=== PATIENT | male | born 1970 | race Caucasian/White ===

== ENCOUNTER 2017-10-14 07:55 | Emergency (ER) | payer OTHER ==
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
[2017-10-14] MEDS ORDERED: ACETAMINOPHEN 1000 MG/100 ML VIAL (NON FORMULARY) IVPB ONE (08:38)
[2017-10-14 08:49] VITALS: BMI 32.6
[2017-10-14] MEDS ORDERED: ACETAMINOPHEN INJECTION 100 ML IVPB ONE (08:52)
[2017-10-14] MEDS ORDERED: KETOROLAC TROMETHAMINE 30 MG/1 ML VIAL IVPUSH ONE (11:25)
[2017-10-14] MEDS ORDERED: CYCLOBENZAPRINE HCL 10 MG TABLET (FP) PO ONE (11:26)
[2017-10-14] MEDS ORDERED: CYCLOBENZAPRINE HCL 10 MG TABLET (FP) ONE (11:52)
[2017-10-14] MEDS ORDERED: KETOROLAC TROMETHAMINE 30 MG/1 ML VIAL ONE (11:53)
[2017-10-14 12:50] VITALS: BP 126/86; PULSE 71; TEMP 98.3
== END 2017-10-14 14:31 | disposition home or self-care (01) ==
LOC: JER 07:55
PROC: 3E033NZ Introduction of Analgesics, Hypnotics, Sedatives into Peripheral Vein, Percutaneous Approach (ICD-10-PCS; principal; 2017-10-14)
PROC: 3E033NZ Introduction of Analgesics, Hypnotics, Sedatives into Peripheral Vein, Percutaneous Approach (ICD-10-PCS; 2017-10-14)
PROC: 3E0333Z Introduction of Anti-inflammatory into Peripheral Vein, Percutaneous Approach (ICD-10-PCS; 2017-10-14)
DX: S06.0X0A Concussion without loss of consciousness, initial encounter (principal); S00.03XA Contusion of scalp, initial encounter; M79.632 Pain in left forearm; M54.5 Low back pain; M25.562 Pain in left knee; V43.52XA Car driver injured in collision with other type car in traffic accident, initial encounter; W22.11XA Striking against or struck by driver side automobile airbag, initial encounter; Y92.414 Local residential or business street as the place of occurrence of the external cause; Y93.89 Activity, other specified; Y99.8 Other external cause status
CPT/HCPCS: 70450-TC; 72100-TC-FY; 73070-TC-LT-FY; 73090-TC-LT-FY; 73110-TC-LR-FY; 73130-TC-LR-FY; 73562-TC-LT-FY; 99284-25; J0131

== ENCOUNTER 2021-01-14 03:56 | Inpatient (IN) | payer BC, OTHER ==
[2021-01-14] MEDS ORDERED: dilTIAZem HCL 50 MG/10 ML - 10 ML VIAL IVPUSH ONE ×2 (04:32→06:13)
[2021-01-14] MEDS ORDERED: dilTIAZem HCL 125 MG/25 ML - 25 ML VIAL ONE ×2 (04:34→06:12)
[2021-01-14] MEDS ORDERED: SODIUM CHLORIDE 0.9% 500 ML INFUS.BAG IV ONE ×2 (04:43→06:03)
[2021-01-14] MEDS ORDERED: dilTIAZem HCL 60 MG TABLET PO ONE (05:08)
[2021-01-14] MEDS ORDERED: dilTIAZem HCL 60 MG TABLET ONE (05:17)
[2021-01-14 05:21] LABS: BASO % 0.5 % (0-2.0); EOS % 0.6 % (0-4.5); HEMATOCRIT 43.2 % (35.4-49); HEMOGLOBIN 15.6 GM/dL (11.7-16.9); LYMPH % 26.9 % (8-40); MCHC 36.2 g/dl (32.0-35.9); MEAN PLT VOLUME 9.1 fl (7.5-11.1); MONO % 6.7 % (3.8-10.2); NEUT % 65.3 % (42.8-82.8); PLATELET COUNT 145 10^3/uL (134-434); RBC 5.21 M/mm3 (4.00-5.60); RDW 14.7 % (11.9-15.9); WHITE BLOOD COUNT 8.4 K/mm3 (4.0-10.0)
[2021-01-14 05:24] LABS: INR 0.9 (0.83-1.09); PROTHROMBIN TIME (PATIENT) 11.1 SEC (9.7-13.0)
[2021-01-14 05:27] LABS: ACTIVATED PTT 27.9 SECONDS (25.2-36.5)
[2021-01-14 05:36] LABS: CHLORIDE 101 mmol/L (98-107); SODIUM 139 mmol/L (136-145)
[2021-01-14 05:39] LABS: ALBUMIN 3.9 g/dl (3.4-5.0); ANION GAP 11 MMOL/L (8-16); BLOOD UREA NITROGEN 18.2 mg/dL (7-18); CO2 27 mmol/L (21-32); GLUCOSE,RANDOM 173 mg/dL (74-106)
[2021-01-14 05:41] LABS: SGOT/AST 56 U/L (15-37)
[2021-01-14 05:43] LABS: BILIRUBIN,TOTAL 0.6 mg/dL (0.2-1)
[2021-01-14 05:44] LABS: TOT PROT 7.3 g/dl (6.4-8.2)
[2021-01-14 05:45] LABS: ALK PHOS 56 U/L (45-117)
[2021-01-14 06:03] LABS: SGPT/ALT 174 U/L (13-61)
[2021-01-14] MEDS ORDERED: ACETAMINOPHEN 325 MG TABLET (FP) ONE (15:01)
[2021-01-14] MEDS ORDERED: ACETAMINOPHEN 500 MG TABLET (FP) PO ONE (15:06)
[2021-01-14] MEDS ORDERED: APIXABAN 5 MG TABLET ONE (15:08)
[2021-01-14] MEDS ORDERED: METOPROLOL TARTRATE 25 MG TABLET (FP) ONE (15:08)
[2021-01-14] MEDS: METOPROLOL TARTRATE 25 MG TABLET (FP) PO SCH ×2 (15:11→21:54)
[2021-01-14] MEDS: APIXABAN 5 MG TABLET PO SCH ×2 (15:11→21:54)
[2021-01-14 20:14] VITALS: BMI 33.4
[2021-01-14] MEDS ORDERED: IBUPROFEN 200 MG TABLET PO ONE (21:40)
[2021-01-14] MEDS: MELATONIN 1 MG TABLET PO SCH (21:56)
[2021-01-15 08:59] LABS: BASO % 0.5 % (0-2.0); EOS % 1.6 % (0-4.5); HEMATOCRIT 39.8 % (35.4-49); HEMOGLOBIN 13.9 GM/dL (11.7-16.9); LYMPH % 30.6 % (8-40); MCH 29.5 pg (25.7-33.7); MCHC 34.8 g/dl (32.0-35.9); MEAN CELL VOLUME 84.6 fl (80-96); MEAN PLT VOLUME 8.7 fl (7.5-11.1); MONO % 6.1 % (3.8-10.2); NEUT % 61.2 % (42.8-82.8); PLATELET COUNT 117 10^3/uL (134-434); RDW 14.7 % (11.9-15.9); WHITE BLOOD COUNT 4.5 K/mm3 (4.0-10.0)
[2021-01-15 09:34] LABS: ALBUMIN 3.3 g/dl (3.4-5.0); BLOOD UREA NITROGEN 15.4 mg/dL (7-18); CALCIUM 8.8 mg/dL (8.5-10.1)
[2021-01-15 09:38] LABS: BILIRUBIN,TOTAL 0.6 mg/dL (0.2-1); TOT PROT 6.3 g/dl (6.4-8.2)
[2021-01-15] MEDS ORDERED: REGADENOSON 0.4 MG/5 ML PRE-FILLED SYRINGE IVPUSH ONE (10:00)
[2021-01-15] MEDS: METOPROLOL TARTRATE 25 MG TABLET (FP) PO SCH ×2 (13:50→21:40)
[2021-01-15] MEDS: APIXABAN 5 MG TABLET PO SCH ×2 (13:50→21:40)
[2021-01-15] MEDS ORDERED: ACETAMINOPHEN 325 MG TABLET (FP) PO ONE (19:45)
[2021-01-15] MEDS: MELATONIN 1 MG TABLET PO SCH (21:40)
[2021-01-16 09:49] VITALS: TEMP 98.5
[2021-01-16] MEDS: METOPROLOL TARTRATE 25 MG TABLET (FP) PO SCH (09:49)
[2021-01-16] MEDS: APIXABAN 5 MG TABLET PO SCH (09:49)
[2021-01-16] MEDS ORDERED: ASPIRIN 81 MG CHEWABLE TABLETS PO SCH (10:00)
[2021-01-16] MEDS ORDERED: PANTOPRAZOLE 40 MG TABLET PO SCH (10:00)
[2021-01-16 15:15] VITALS: BP 103/63; PULSE 74
[2021-01-16] MEDS ORDERED: ATORVASTATIN CA 20 MG TABLET (FP) PO SCH (22:00)
== END 2021-01-16 18:30 | disposition home or self-care (01) | DRG 310 ==
LOC: JER 03:56 → JERBED 09:02 → J4S 20:07
PROVIDERS: ADMIT Family Medicine; ATTEND Family Medicine
DX: I48.91 Unspecified atrial fibrillation (principal); E11.9 Type 2 diabetes mellitus without complications; I25.10 Atherosclerotic heart disease of native coronary artery without angina pectoris; K21.9 Gastro-esophageal reflux disease without esophagitis; E78.5 Hyperlipidemia, unspecified
CPT/HCPCS: 36415; 71045-TC-FY; 71275-TC; 78452-TC; 80053; 80061; 80074; 82550; 83036; 84443; 84484; 85025; 85610; 85730; 86769; 93005; 93010; 93017; 93306-TC; 93970-TC; 99285-25; A9502; C9803; Q9967; U0003; U0005

== ENCOUNTER 2021-05-01 17:46 | Observation (INO) | payer BC ==
[2021-05-01] MEDS ORDERED: SODIUM CHLORIDE 0.9% 500 ML INFUS.BAG IV ONE ×2 (18:45→22:17)
[2021-05-01] MEDS ORDERED: VANCOMYCIN 1 GM in D5W (PRE-DOCKED) 1,000 MG/250 ML IVPB ONE (18:46)
[2021-05-01] MEDS ORDERED: ACETAMINOPHEN 1000 MG/100 ML VIAL IVPB ONE (18:46)
[2021-05-01] MEDS ORDERED: ACETAMINOPHEN INJECTION 100 ML IVPB ONE (19:04)
[2021-05-01] MEDS ORDERED: VANCOMYCIN 1 GRAM (PRE-DOCKED) 1,000 MG/250 ML BAG IVPB ONE (19:05)
[2021-05-01 19:33] LABS: BASO % 0.2 % (0-2.0); EOS % 0.1 % (0-4.5); HEMATOCRIT 35.3 % (35.4-49); HEMOGLOBIN 12.1 GM/dL (11.7-16.9); LYMPH % 2.8 % (8-40); MCH 26.8 pg (25.7-33.7); MCHC 34.2 g/dl (32.0-35.9); MEAN CELL VOLUME 78.4 fl (80-96); MEAN PLT VOLUME 8.2 fl (7.5-11.1); MONO % 4.3 % (3.8-10.2); NEUT % 92.6 % (42.8-82.8); PLATELET COUNT 188 10^3/uL (134-434); RBC 4.51 M/mm3 (4.00-5.60); RDW 14.4 % (11.9-15.9); WHITE BLOOD COUNT 7.6 K/mm3 (4.0-10.0)
[2021-05-01 19:37] LABS: EPI CELLS 3 /uL (0-25.1); HYALINE CASTS 6 /uL (0-3.1); PH,URINE 5.5 (5.0-8.0); URINE APPEARANCE CLEAR; URINE BACTERIA 1 /uL (0-1359); URINE BILIRUBIN NEGATIVE (NEGATIVE); URINE COLOR YELLOW; URINE GLUCOSE (UA) NEGATIVE (NEGATIVE); URINE KETONE TRACE (NEGATIVE); URINE LEUK ESTERASE TRACE (NEGATIVE); URINE NITRITE NEGATIVE (NEGATIVE); URINE PROTEIN NEGATIVE (NEGATIVE); URINE RBC 7 /uL (0-23.9); URINE UROBILINOGEN 0.2 mg/dL (0.2-1.0); URINE WBC 10 /uL (0-25.8)
[2021-05-01 19:41] LABS: INR 1.43 (0.83-1.09); PROTHROMBIN TIME (PATIENT) 16.1 SEC (9.7-13.0)
[2021-05-01 19:43] LABS: ACTIVATED PTT 33.6 SECONDS (25.2-36.5)
[2021-05-01] MEDS ORDERED: MEROPENEM 1 GM in DEXTROSE 5%-WATER 100 ML IVPB ONE (19:45)
[2021-05-01] MEDS ORDERED: CEFEPIME HCL/D5W 1 GM/50 ML BAG IVPB ONE (20:03)
[2021-05-01 20:13] LABS: ALBUMIN 3.4 g/dl (3.4-5.0); ALK PHOS 48 U/L (45-117); ANION GAP 8 MMOL/L (8-16); BILIRUBIN,TOTAL 0.5 mg/dL (0.2-1); BLOOD UREA NITROGEN 23.8 mg/dL (7-18); CALCIUM 9.3 mg/dL (8.5-10.1); CHLORIDE 107 mmol/L (98-107); CO2 26 mmol/L (21-32); CREATININE 1.2 mg/dL (0.55-1.3); GLUCOSE,RANDOM 120 mg/dL (74-106); SGOT/AST 10 U/L (15-37); SGPT/ALT 22 U/L (13-61); SODIUM 141 mmol/L (136-145); TOT PROT 6.8 g/dl (6.4-8.2)
[2021-05-01] MEDS ORDERED: CEFEPIME 1 GM/100 ML BAG IVPB ONE (20:16)
[2021-05-01 21:55] LABS: MAGNESIUM 2.1 mg/dL (1.8-2.4); PHOSPHOROUS 2.1 mg/dL (2.5-4.9)
[2021-05-01] MEDS ORDERED: POLYETHYLENE GLYCOL 3350 119 GM BTL PO PRN (22:19)
[2021-05-01] MEDS ORDERED: ACETAMINOPHEN 1000 MG/100 ML VIAL IVPB PRN (22:25)
[2021-05-01] MEDS ORDERED: SODIUM CHLORIDE 1,000 ML IV SCH (22:30)
[2021-05-01] MEDS ORDERED: POLYETHYLENE GLYCOL (HEALTHYLAX) 3350 17 GM PACKET PO PRN (22:42)
[2021-05-01] MEDS ORDERED: CEFEPIME 2 GM in DEXTROSE 5%-WATER 100 ML IVPB SCH (22:45)
[2021-05-02] MEDS ORDERED: APIXABAN 5 MG TABLET PO ONE (00:47)
[2021-05-02] MEDS ORDERED: IBUPROFEN 600 MG TABLET (FP) PO PRN (00:52)
[2021-05-02] MEDS ORDERED: ACETAMINOPHEN 1000 MG/100 ML VIAL IVPB PRN (00:52)
[2021-05-02] MEDS: DOCUSATE SODIUM 100 MG CAPSULE (FP) PO SCH ×3 (01:45→13:19)
[2021-05-02 02:17] VITALS: BMI 28.5
[2021-05-02] MEDS ORDERED: MEROPENEM 1 GM VIAL (RESTRICTED TO ID) IVPB ONE ×2 (03:00→11:00)
[2021-05-02] MEDS ORDERED: DEXTROSE 5%-WATER 100 ML IVPB ONE ×2 (03:00→11:00)
[2021-05-02] MEDS: MEROPENEM 1 GM in DEXTROSE 5%-WATER 100 ML IVPB SCH ×2 (03:04→13:19)
[2021-05-02] MEDS ORDERED: MEROPENEM 1 GM in DEXTROSE 5%-WATER 100 ML IVPB SCH (04:00)
[2021-05-02] MEDS ORDERED: SODIUM CHLORIDE 250 ML IV STA (05:54)
[2021-05-02] MEDS ORDERED: VANCOMYCIN/WATER 1,250 MG/250 ML BAG IVPB SCH (06:00)
[2021-05-02] MEDS ORDERED: VANCOMYCIN/WATER BAGS 1,250 MG/250 ML BAG IVPB SCH (06:00)
[2021-05-02] MEDS ORDERED: CEFEPIME 2 GM in DEXTROSE 5%-WATER 100 ML IVPB SCH (06:00)
[2021-05-02] MEDS: INSULIN SLIDING SCALE (NOVOLOG) 1 VIAL SQ SCH ×2 (06:05→11:42)
[2021-05-02 08:23] LABS: BASO % 0.7 % (0-2.0); EOS % 1.4 % (0-4.5); HEMATOCRIT 30.3 % (35.4-49); HEMOGLOBIN 10.2 GM/dL (11.7-16.9); LYMPH % 17.2 % (8-40); MCH 26.7 pg (25.7-33.7); MCHC 33.7 g/dl (32.0-35.9); MEAN CELL VOLUME 79.2 fl (80-96); MEAN PLT VOLUME 8.4 fl (7.5-11.1); MONO % 13.5 % (3.8-10.2); NEUT % 67.2 % (42.8-82.8); PLATELET COUNT 170 10^3/uL (134-434); RBC 3.82 M/mm3 (4.00-5.60); WHITE BLOOD COUNT 5.3 K/mm3 (4.0-10.0)
[2021-05-02] MEDS ORDERED: MINERAL OIL 30 ML UNIT-DOSE CUP PO SCH (10:00)
[2021-05-02] MEDS ORDERED: ASCORBIC ACID 500 MG TABLET (FP) PO SCH (10:00)
[2021-05-02] MEDS ORDERED: PSYLLIUM 5.85 GM PACKET PO SCH (10:00)
[2021-05-02] MEDS ORDERED: APIXABAN 5 MG TABLET PO SCH (10:00)
[2021-05-02] MEDS ORDERED: PANTOPRAZOLE 40 MG TABLET PO SCH (10:00)
[2021-05-02] MEDS ORDERED: MAGNESIUM HYDROX 2400MG/30ML ORAL SUSPENSION 30 ML CUP PO SCH (10:00)
[2021-05-02] MEDS ORDERED: FENOFIBRIC ACID 135 MG CAP PO SCH ×2 (10:00→11:15)
[2021-05-02 12:32] LABS: BLOOD UREA NITROGEN 17.1 mg/dL (7-18); CALCIUM 8.7 mg/dL (8.5-10.1); CREATININE 1.1 mg/dL (0.55-1.3)
[2021-05-02 14:24] VITALS: BP 107/68; PULSE 82; TEMP 98.4
== END 2021-05-02 16:56 | disposition home or self-care (01) ==
LOC: JER 17:46 → UNDOADMOB 22:18 → JERBED 22:18 → INTOOBSV 22:18 → J8W 05-02 00:34 → JERBED 05-02 00:34 → J8W 05-02 14:29
PROVIDERS: ADMIT Internal Medicine; ATTEND Family Medicine
PROC: 3E033NZ Introduction of Analgesics, Hypnotics, Sedatives into Peripheral Vein, Percutaneous Approach (ICD-10-PCS; principal; 2021-05-02)
PROC: 3E03329 Introduction of Other Anti-infective into Peripheral Vein, Percutaneous Approach (ICD-10-PCS; 2021-05-02)
PROC: 3E0337Z Introduction of Electrolytic and Water Balance Substance into Peripheral Vein, Percutaneous Approach (ICD-10-PCS; 2021-05-02)
DX: K62.6 Ulcer of anus and rectum (principal); I48.91 Unspecified atrial fibrillation; E11.9 Type 2 diabetes mellitus without complications; K21.9 Gastro-esophageal reflux disease without esophagitis; I10 Essential (primary) hypertension; E78.5 Hyperlipidemia, unspecified; Z79.01 Long term (current) use of anticoagulants; G89.29 Other chronic pain; M54.59 Other low back pain; D64.9 Anemia, unspecified; K62.5 Hemorrhage of anus and rectum
CPT/HCPCS: 36415; 71045-TC-FY; 72193-TC; 80048; 80053; 81003; 82962; 83605; 83735; 84100; 84484; 85025; 85610; 85730; 87040; 87086; 93005; 93010; 99285-25; C9803; G0378; J0131; Q9967; U0003; U0005

== ENCOUNTER 2021-08-26 00:45 | Emergency (ER) | payer BC, OTHER ==
[2021-08-26 01:35] VITALS: BP 134/76; PULSE 68; TEMP 98.1; BMI 31.1
[2021-08-26] MEDS ORDERED: MAG HYDROX/AL HYDROX/SIMETH -MYLANTA- ORAL SUSPENSION PO ONE (01:49)
[2021-08-26] MEDS ORDERED: FAMOTIDINE 20 MG/50 ML IVPB 20 MG/50 ML MG IVPB ONE ×2 (01:49→02:07)
[2021-08-26] MEDS ORDERED: MAG HYDROX/AL HYDROX/SIMETH 30 ML UNIT-DOSE CUP ONE (02:07)
[2021-08-26 02:10] LABS: BASO % 0.9 % (0-2.0); EOS % 1.3 % (0-4.5); HEMATOCRIT 36.6 % (35.4-49); HEMOGLOBIN 12.1 GM/dL (11.7-16.9); LYMPH % 34.1 % (8-40); MCH 24.2 pg (25.7-33.7); MCHC 33.2 g/dl (32.0-35.9); MEAN CELL VOLUME 72.8 fl (80-96); MEAN PLT VOLUME 8.8 fl (7.5-11.1); MONO % 10.9 % (3.8-10.2); NEUT % 52.8 % (42.8-82.8); PLATELET COUNT 169 10^3/uL (134-434); RBC 5.02 M/mm3 (4.00-5.60); RDW 16.7 % (11.9-15.9); WHITE BLOOD COUNT 3.8 K/mm3 (4.0-10.0)
[2021-08-26 02:33] LABS: CALCIUM 9.9 mg/dL (8.5-10.1)
[2021-08-26 02:37] LABS: CREATININE 1.2 mg/dL (0.55-1.3)
[2021-08-26 02:39] LABS: BILIRUBIN,TOTAL 0.3 mg/dL (0.2-1); TOT PROT 6.6 g/dl (6.4-8.2)
== END 2021-08-26 04:15 | disposition home or self-care (01) ==
LOC: JER 00:45
PROC: 3E033GC Introduction of Other Therapeutic Substance into Peripheral Vein, Percutaneous Approach (ICD-10-PCS; principal; 2021-08-26)
DX: M79.10 Myalgia, unspecified site (principal); R07.9 Chest pain, unspecified; Z86.79 Personal history of other diseases of the circulatory system
CPT/HCPCS: 36415; 71046-TC-FY; 80053; 84484; 85025; 93005; 93010; 99285-25

== ENCOUNTER 2022-01-04 10:00 | Day surgery (SDC) | payer OTHER ==
[2022-01-01 18:50] VITALS: BMI 33.1
[2022-01-04] MEDS ORDERED: BUPIVACAINE HCL/PF 2.5 MG/ML - 30 ML VIAL IJ ONE (12:05)
[2022-01-04] MEDS ORDERED: oxyCODONE HCL 5 MG TABLET PO PRN ×2 (12:05)
[2022-01-04] MEDS ORDERED: ONDANSETRON 4 MG/2 ML VIAL IVPUSH PRN (12:05)
[2022-01-04] MEDS ORDERED: LACTATED RINGERS SOLUTION 1,000 ML IV SCH (12:15)
[2022-01-04] MEDS ORDERED: MIDAZOLAM HCL 2 MG/2 ML SINGLE DOSE VIAL ONE (12:39)
[2022-01-04] MEDS ORDERED: PROPOFOL 20 ML ONE ×2 (12:39→13:45)
[2022-01-04] MEDS ORDERED: BUPIVACAINE HCL/PF 0.25% (2.5MG/ML) 10 ML VIAL IJ ONE (14:05)
[2022-01-04 15:37] VITALS: TEMP 97.6
[2022-01-04 15:46] VITALS: BP 113/70; PULSE 71; RESP 16
== END 2022-01-04 16:02 | disposition home or self-care (01) ==
LOC: FASU 10:00
PROVIDERS: ATTEND Orthopaedic Surgery
PROC: 0SBC4ZZ Excision of Right Knee Joint, Percutaneous Endoscopic Approach (ICD-10-PCS; 2022-01-04)
PROC: 0SBC4ZZ Excision of Right Knee Joint, Percutaneous Endoscopic Approach (ICD-10-PCS; principal; 2022-01-04 13:47)
DX: S83.241A Other tear of medial meniscus, current injury, right knee, initial encounter (principal); S83.281A Other tear of lateral meniscus, current injury, right knee, initial encounter; S83.8X1A Sprain of other specified parts of right knee, initial encounter; M65.861 Other synovitis and tenosynovitis, right lower leg; X58.XXXA Exposure to other specified factors, initial encounter; Y93.9 Activity, unspecified; Y92.9 Unspecified place or not applicable
CPT/HCPCS: 82962; 94760

== ENCOUNTER 2022-12-16 12:14 | Emergency (ER) | payer BC, OTHER ==
[2022-12-16 12:44] VITALS: BP 156/94; PULSE 68; RESP 20; TEMP 98.2; BMI 29.9
[2022-12-16 13:16] LABS: HEMATOCRIT 42.4 % (35.4-49); HEMOGLOBIN 14.4 G/dL (11.7-16.9); MCH 27.1 pg (25.7-33.7); MEAN CELL VOLUME 79.8 fl (80-96); MEAN PLT VOLUME 10.2 fl (7.5-11.1); PLATELET COUNT 155.1 10^3/uL (134-434); RBC 5.31 10^6/uL (4.00-5.60); RDW 16.5 % (11.9-15.9); WHITE BLOOD COUNT 3.9 10^3/uL (4.0-10.8)
[2022-12-16 13:19] LABS: PLATELET ESTIMATE ADEQUATE
[2022-12-16 13:26] LABS: ALBUMIN 4.7 g/dl (3.4-5.0); BILIRUBIN,TOTAL 0.7 mg/dl (0.2-1); BLOOD UREA NITROGEN 17.1 mg/dl (7-18); CALCIUM 9.9 mg/dl (8.5-10.1); CREATININE 1.2 mg/dl (0.6-1.3); POTASSIUM 3.9 mmol/L (3.5-5.1); SGPT/ALT 22.9 U/L (7-52); TOT PROT 6.9 g/dl (6.4-8.2)
== END 2022-12-16 15:10 | disposition home or self-care (01) ==
LOC: FER 12:14
DX: R05.9 Cough, unspecified (principal); R41.9 Unspecified symptoms and signs involving cognitive functions and awareness; J20.8 Acute bronchitis due to other specified organisms; B97.89 Other viral agents as the cause of diseases classified elsewhere
CPT/HCPCS: 36415; 70450-TC; 71045-TC-FY; 80053; 84484; 85027; 93005; 99285-25

== ENCOUNTER 2024-01-13 13:16 | Inpatient (IN) | payer OTHER ==
[2024-01-13 14:55] LABS: BASO % 0.4 % (0-2.0); EOS % 0.3 % (0-4.5); LYMPH % 19.7 % (8-40); MCH 28.6 pg (25.7-33.7); MCHC 34.7 g/dl (32.0-35.9); MEAN CELL VOLUME 82.3 fl (80-96); MEAN PLT VOLUME 8.7 fl (7.5-11.1); MONO % 8.5 % (3.8-10.2); NEUT % 71.1 % (42.8-82.8); PLATELET COUNT 179 10^3/uL (134-434); RBC 5.23 M/mm3 (4.00-5.60); RDW 14.3 % (11.9-15.9)
[2024-01-13] MEDS: VANCOMYCIN PREMIX 1.75 GM 1,750 MG/350 ML PIGGYBACK IVPB ONE (15:13)
[2024-01-13 15:17] LABS: POTASSIUM 3.9 mmol/L (3.5-5.1)
[2024-01-13 15:19] LABS: CALCIUM 9.8 mg/dL (8.5-10.1)
[2024-01-13 15:20] LABS: ALBUMIN 4.4 g/dl (3.4-5.0); BLOOD UREA NITROGEN 21.6 mg/dL (7-18)
[2024-01-13 15:23] LABS: CREATININE 1.2 mg/dL (0.55-1.3)
[2024-01-13 15:24] LABS: TOT PROT 7.5 g/dl (6.4-8.2)
[2024-01-13] MEDS ORDERED: MEROPENEM 1 GM VIAL (RESTRICTED TO ID) IVPB ONE (15:38)
[2024-01-13] MEDS: MEROPENEM 1 GM in DEXTROSE 5%-WATER 100 ML IVPB ONE (17:34)
[2024-01-13] MEDS: MEROPENEM 1 GM in DEXTROSE 5%-WATER 100 ML IVPB SCH (18:06)
[2024-01-13 19:48] VITALS: BMI 30.2
[2024-01-13] MEDS: APIXABAN 5 MG TABLET PO SCH (21:11)
[2024-01-14] MEDS: VANCOMYCIN/WATER FOR INJ (PEG) 1,000 MG/200 ML BAG IVPB SCH (04:58)
[2024-01-14 09:28] LABS: BASO % 0.3 % (0-2.0); EOS % 0.4 % (0-4.5); HEMOGLOBIN 15.2 GM/dL (11.7-16.9); LYMPH % 20.5 % (8-40); MCH 29.3 pg (25.7-33.7); MCHC 35.5 g/dl (32.0-35.9); MEAN CELL VOLUME 82.6 fl (80-96); MEAN PLT VOLUME 9.4 fl (7.5-11.1); MONO % 7.5 % (3.8-10.2); NEUT % 71.3 % (42.8-82.8); PLATELET COUNT 188 10^3/uL (134-434); RDW 14.2 % (11.9-15.9)
[2024-01-14 09:53] LABS: ALBUMIN 4.4 g/dl (3.4-5.0); CALCIUM 10.1 mg/dL (8.5-10.1); MAGNESIUM 2.2 mg/dL (1.8-2.4)
[2024-01-14 09:56] LABS: CREATININE 1.2 mg/dL (0.55-1.3)
[2024-01-14 09:58] LABS: BILIRUBIN,TOTAL 1.3 mg/dL (0.2-1); TOT PROT 7.9 g/dl (6.4-8.2)
[2024-01-14] MEDS: PANTOPRAZOLE 40 MG TABLET PO SCH (10:47)
[2024-01-14] MEDS: FENOFIBRIC ACID 135 MG CAP PO SCH (10:47)
[2024-01-14] MEDS: metoPROLOL SUCCINATE 25 MG TAB.SR.24H (FP) PO SCH (10:48)
[2024-01-14] MEDS: MEROPENEM 1 GM in DEXTROSE 5%-WATER 100 ML IVPB SCH (15:43)
[2024-01-14] MEDS: VANCOMYCIN 1,000 MG in DEXTROSE 5%-WATER - 250 ML IVPB SCH (15:43)
[2024-01-14] MEDS ORDERED: APIXABAN 5 MG TABLET PO SCH (22:00)
[2024-01-15] MEDS: MELATONIN 5 MG TABLETS PO ONE (01:39)
[2024-01-15] MEDS: VANCOMYCIN/WATER FOR INJ (PEG) 1,000 MG/200 ML BAG IVPB SCH (03:58)
[2024-01-15] MEDS: MELATONIN 5 MG TABLETS PO PRN (21:00)
[2024-01-16] MEDS: diphenhydrAMINE HCL 25 MG CAPSULE (FP) PO ONE (01:38)
[2024-01-16 16:42] VITALS: BP 107/80; PULSE 64; RESP 16; TEMP 98.2
== END 2024-01-16 18:03 | disposition home or self-care (01) | DRG 383 ==
LOC: JER 13:16 → JERBED 15:14 → J5S 19:27
PROVIDERS: ADMIT Family Medicine; ATTEND Family Medicine
DX: L03.113 Cellulitis of right upper limb (principal); I25.10 Atherosclerotic heart disease of native coronary artery without angina pectoris; I48.91 Unspecified atrial fibrillation; E11.9 Type 2 diabetes mellitus without complications; K21.9 Gastro-esophageal reflux disease without esophagitis; E78.00 Pure hypercholesterolemia, unspecified; M54.50 Low back pain, unspecified; D64.9 Anemia, unspecified; Z88.1 Allergy status to other antibiotic agents
CPT/HCPCS: 36415; 73070-TC-RT-FY; 76882-TC-RT-FY; 80053; 83036; 83735; 84443; 85025; 87040; 93005; 93010; 99285-25; G0480; J3370